=== PATIENT | female | born 1945 | race Caucasian/White ===

== ENCOUNTER 2018-07-20 20:59 | Inpatient (IN) | payer MEDICARE, MEDICAID ==
[~2018-07-20] VITALS: Ht 165.1 cm; Wt 87.4 kg
[~2018-07-20 20:59] MED LIST: ACIDOPHILUS PROB1 M1 PO; ASPI-1264 PO; ATOR10TA PO; DIPH-423 PO; DOCU100C40 PO; FISH OIL 1,2001 EAC1 PO; FURO-150 PO; ISOS30TA6 PO; MAGN400O6 PO; NITR0.4T51 SL; NORCO10T PO; OMEP-84 PO; POTA8CAP9 PO; [UNRECOGNIZED DRUG - CODE] PO
[2018-07-20] MEDS ORDERED: temazepam 15mg capsule PO PRN (21:00)
[2018-07-20] MEDS ORDERED: nitroGLYCERIN 0.4mg SUBLingual tab SL PRN ×2 (21:10→23:10)
[2018-07-20] MEDS ORDERED: normal saline 1000ml 1,000 ML IV SCH (21:17)
[2018-07-20] MEDS ORDERED: HYDROmorphone 1 mg/ml syringe IV PRN ×2 (21:20)
[2018-07-20] MEDS ORDERED: morphine 2 MG/ML inj. syringe IV PRN ×2 (21:20)
[2018-07-20] MEDS ORDERED: magnesium hydroxide 30ml (MOM) UD suspension PO PRN (21:20)
[2018-07-20] MEDS ORDERED: metoclopramide 5 mg/ml inj IV PRN (21:20)
[2018-07-20] MEDS ORDERED: diphenhydrAMINE 25mg capsule PO PRN (21:20)
[2018-07-20] MEDS ORDERED: acetaminophen 325mg tablet PO PRN ×2 (21:20)
[2018-07-20] MEDS ORDERED: bisacodyl 10mg suppository rectal RC PRN (21:20)
[2018-07-20] MEDS ORDERED: mag hydrox/Alum hydrox/simeth 30ml oral suspension PO PRN (21:20)
[2018-07-20] MEDS ORDERED: HYDROcodone/acetaminophen 5mg/325mg tablet PO PRN (21:20)
[2018-07-20] MEDS ORDERED: diphenhydrAMINE 50 mg/ml inj IV PRN (21:20)
[2018-07-20] MEDS ORDERED: ondansetron/PF 4mg/2ml inj IV PRN (21:20)
[2018-07-20 21:41] LABS: HEMOGLOBIN A1C 6.2 % (4.5-6.2)
[2018-07-20 21:50] LABS: MAGNESIUM 2.1 MG/DL (1.5-2.4); PHOSPHORUS 3.3 MG/DL (2.3-4.5)
[2018-07-20 21:56] LABS: PARTIAL THROMBOPLASTIN TIME 30 SECONDS (22-32); PROTHROMBIN TIME 10.3 SECONDS (9.0-12.0)
[2018-07-20] MEDS ORDERED: SERT50TA10 PO (21:56)
[2018-07-20] MEDS ORDERED: ASPI-611 PO (21:56)
[2018-07-20] MEDS ORDERED: MECL-111 PO (21:57)
[2018-07-20 21:58] LABS: CLARITY,URINE CLEAR (Clear); COLOR,URINE YELLOW (Yellow); GLUCOSE, URINE NEGATIVE (Neg); KETONES,URINE NEGATIVE (Neg); LEUKOCYTE ESTERASE ,URINE NEGATIVE (Neg); NITRITES, URINE NEGATIVE (Neg); OCCULT BLOOD,URINE NEGATIVE (Neg); PROTEIN,URINE NEGATIVE (Neg)
[2018-07-20] MEDS ORDERED: FLAX100031 PO (21:58)
[2018-07-20 22:14] LABS: UA COLLECTION TYPE CLN CATCH MIDSTREAM
[2018-07-20 22:30] VITALS: BP 115/70
[2018-07-20] MEDS ORDERED: sertraline 50mg tablet PO SCH (23:05)
[2018-07-20] MEDS ORDERED: meclizine 12.5mg tablet PO PRN (23:05)
[2018-07-20] MEDS: heparin, porcine 5000 units/ml vial SQ SCH (23:08)
[2018-07-20] MEDS: HYDROcodone/acetaminophen 10/325mg tab PO PRN (23:09)
[2018-07-20] MEDS ORDERED: potassium Cl 40MEQ/NS 500ml 500 ML IV PRN ×2 (23:10)
[2018-07-20] MEDS ORDERED: aminophylline 250mg/10ml inj. IV PRN (23:10)
[2018-07-20] MEDS: K and/or MAG REPLACEMENT MC SCH (23:10)
[2018-07-20] MEDS ORDERED: metoprolol tartrate 1mg/ml inj IV PRN (23:10)
[2018-07-20] MEDS ORDERED: regadenoson 0.4mg/5ml syringe IV ONE ×2 (23:10→23:20)
[2018-07-20] MEDS ORDERED: potassium Cl 20 mEq SR tablet PO PRN (23:10)
[2018-07-21] VITALS (11 sets, daily range): BP systolic 117–139; BP diastolic 53–83
[2018-07-21 01:06] LABS: D-DIMER 0.55 MG/L FEU (0-0.50)
[2018-07-21 03:17] LABS: BASOPHILS % (AUTO) 0.4 % (0-1); EOSINOPHILS # (AUTO) 0.1 X10'3 (0-0.9); HEMATOCRIT 32.6 % (35.0-45.0); HEMOGLOBIN 10.6 g/dl (12.0-16.0); LYMPHOCYTES # (AUTO) 2.5 X10'3 (1.1-4.8); LYMPHOCYTES % (AUTO) 37.2 % (21-51); MEAN CORPUSCULAR HEMOGLOBIN 25.5 PG (27.0-31.0); MEAN CORPUSCULAR HGB CONC 32.5 % (33.0-36.5); MEAN CORPUSCULAR VOLUME 78.4 FL (78-98); MEAN PLATELET VOLUME 7.4 FL (7.4-10.4); MONOCYTES # (AUTO) 0.4 X10'3 (0-0.9); MONOCYTES % (AUTO) 5.9 % (2-12); NEUTROPHILS # (AUTO) 3.7 X10'3 (1.8-7.7); NEUTROPHILS % (AUTO) 54.5 % (42-75); PLATELET COUNT 281 X10'3 (140-440); RED BLOOD COUNT 4.16 X10'6 (4.20-5.60); RED CELL DISTRIBUTION WIDTH 15.4 % (11.5-14.5); WHITE BLOOD COUNT 6.9 X10'3 (4.5-11.0)
[2018-07-21 03:46] LABS: ALANINE AMINOTRANSFERASE 12 U/L (12-78); ALBUMIN 2.8 G/DL (3.4-5.0); ALBUMIN/GLOBULIN RATIO 0.7 (1.1-1.5); ALKALINE PHOSPHATASE 78 IU/L (46-116); ANION GAP 6 (8-16); ASPARTATE AMINO TRANSFERASE 14 U/L (10-37); BILIRUBIN,TOTAL 0.4 MG/DL (0.1-1.0); BLOOD UREA NITROGEN 18 MG/DL (7-18); BUN/CREATININE RATIO 18.4 (6.6-38.0); CALCIUM 8.9 MG/DL (8.5-10.1); CHLORIDE 104 MMOL/L (99-107); CREATININE 0.98 MG/DL (0.40-0.90); GLUCOSE 107 MG/DL (70-104); POTASSIUM 3.3 MMOL/L (3.5-5.1); SODIUM 142 MMOL/L (135-145); TOTAL CARBON DIOXIDE 32.4 MMOL/L (24-32); TOTAL PROTEIN 6.8 G/DL (6.4-8.2); eGFR 55 ML/MIN
[2018-07-21 03:50] LABS: CHOL/HDL RATIO 2.9 (0.00-4.99); CHOLESTEROL 113 MG/DL (0-200); HDL CHOLESTEROL 39 MG/DL (35-60); LDL CHOLESTEROL 52 MG/DL (50-100); TRIGLYCERIDES 145 MG/DL (20-135)
[2018-07-21] MEDS: HYDROcodone/acetaminophen 10/325mg tab PO PRN (04:45)
[2018-07-21] MEDS: potassium Cl 20 mEq SR tablet PO PRN ×2 (05:13→11:51)
[2018-07-21] MEDS ORDERED: pantoprazole 40mg Tablet.DR PO SCH ×2 (07:30)
[2018-07-21] MEDS: heparin, porcine 5000 units/ml vial SQ SCH (07:36)
[2018-07-21] MEDS ORDERED: nitroGLYCERIN 0.2mg/hour patch TD SCH (08:00)
[2018-07-21] MEDS ORDERED: docusate sod 100mg capsule PO SCH (08:00)
[2018-07-21] MEDS ORDERED: aspirin 81mg tab.chew PO SCH (08:30)
[2018-07-21] MEDS: K and/or MAG REPLACEMENT MC SCH (08:57)
[2018-07-21] MEDS ORDERED: aminophylline inj. 0 ML IV ONE (10:02)
[2018-07-21] MEDS ORDERED: regadenoson 0.4mg/5ml syringe IV ONE (10:02)
[2018-07-21] MEDS ORDERED: METO25TA6 PO ×2 (12:59→13:00)
[2018-07-21] MEDS ORDERED: FURO-150 PO (15:25)
[2018-07-21] MEDS ORDERED: atorvastatin 10mg tablet PO SCH (21:00)
[2018-07-21] MEDS ORDERED: sertraline 50mg tablet PO SCH (21:00)
== END 2018-07-21 16:22 | disposition home or self-care (01) | DRG 204 ==
LOC: ER 21:00 → ED HOLD 21:17 → PCU 3S 22:30
PROVIDERS: ADMIT Family Medicine; ATTEND Internal Medicine
PROC: 4A02XM4 Measurement of Cardiac Total Activity, External Approach (ICD-10-PCS; principal; 2018-07-21)
PROC: 3E033HZ Introduction of Radioactive Substance into Peripheral Vein, Percutaneous Approach (ICD-10-PCS; 2018-07-21)
DX: R07.81 Pleurodynia (principal); I50.32 Chronic diastolic (congestive) heart failure; I44.7 Left bundle-branch block, unspecified; E11.9 Type 2 diabetes mellitus without complications; I11.0 Hypertensive heart disease with heart failure; I25.10 Atherosclerotic heart disease of native coronary artery without angina pectoris; R09.02 Hypoxemia; G89.29 Other chronic pain; M54.9 Dorsalgia, unspecified; E87.6 Hypokalemia; R42 Dizziness and giddiness; T50.1X5A Adverse effect of loop [high-ceiling] diuretics, initial encounter; I25.2 Old myocardial infarction; Z95.810 Presence of automatic (implantable) cardiac defibrillator; Z95.1 Presence of aortocoronary bypass graft; Z99.81 Dependence on supplemental oxygen; Z88.0 Allergy status to penicillin; Z88.2 Allergy status to sulfonamides; Z88.3 Allergy status to other anti-infective agents; Z79.899 Other long term (current) drug therapy; Z79.82 Long term (current) use of aspirin; Z86.73 Personal history of transient ischemic attack (TIA), and cerebral infarction without residual deficits; Z81.1 Family history of alcohol abuse and dependence; Z83.3 Family history of diabetes mellitus; Z82.0 Family history of epilepsy and other diseases of the nervous system; Z82.49 Family history of ischemic heart disease and other diseases of the circulatory system; Y92.89 Other specified places as the place of occurrence of the external cause
CPT/HCPCS: 36415; 78452; 80053; 80061; 81003; 83036; 83735; 83880; 84100; 84484; 85025; 85379; 85610; 85730; 87070; 93005; 93017; 99285; A9500; G0378; J0280; J1644

== ENCOUNTER → 2020-06-16 | Outpatient (CLI) | payer MEDICARE, MEDICAID ==
[~2020-06-16] MED LIST changes: -ACIDOPHILUS PROB1 M1 PO; -ASPI-1264 PO; +ASPI-611 PO; -ATOR10TA PO; +CHOL10006 PO; -DIPH-423 PO; -DOCU100C40 PO; -FISH OIL 1,2001 EAC1 PO; -ISOS30TA6 PO; +LOSA1TAB36 PO; -MAGN400O6 PO; -NITR0.4T51 SL; +OMEG-79 PO; +POTA10CA44 PO; -POTA8CAP9 PO; +SERT50TA10 PO
== END | disposition home or self-care (01) ==
LOC: VAS 09:31
PROVIDERS: ATTEND Orthopaedic Surgery
DX: M25.561 Pain in right knee (principal); M79.89 Other specified soft tissue disorders
CPT/HCPCS: 93971